=== PATIENT | female | born 1960 | race Caucasian/White ===

== ENCOUNTER 2019-04-29 08:25 | Emergency (ER) | payer BC ==
[~2019-04-29] VITALS: Ht 165.1 cm; Wt 65.9 kg
[2019-04-29 08:30] VITALS: TEMP 97.9
[2019-04-29] MEDS ORDERED: MAVIK2 MG PO (08:38)
[2019-04-29 08:48] LABS: BASO % 0.1 % (0.0-2.0); EOS # 0.1 (0.0-0.7); EOS % 0.9 % (0-4.0); GRAN # 5.6 (1.4-6.5); GRAN % 74.2 % (42.2-75.2); HEMATOCRIT 45.4 % (37.0-47.0); HEMOGLOBIN 15.3 g/dl (12.5-16.0); LYMPH # 1.3 (1.2-3.4); LYMPH % 17.9 % (20.0-51.0); MEAN CELL VOLUME 94 fl (80.0-100.0); MEAN CORPUSCULAR HEMOGLOBIN 32 pg (27.0-31.0); MEAN CORPUSCULAR HGB CONC 34 g/dl (33.0-37.0); MONO # 0.5 (0.1-0.6); MONO % 6.5 % (1.7-9.3); PLATELET COUNT 270 K/mm3 (130-400); RED BLOOD COUNT 4.83 M/mm3 (4.10-5.30); REDCELL DISTRIBUTION WIDTH-CV 12.9 % (11.5-14.5)
[2019-04-29 09:06] LABS: ALANINE AMINOTRANSFERASE 42 U/L (9-52); ALBUMIN 4.9 gm/dL (3.5-5.0); ALKALINE PHOSPHATASE 76 U/L (50-136); ANION GAP 10 mmol/L (7-16); AST,SGOT 31 U/L (15-37); BLOOD UREA NITROGEN 13 mg/dL (7-17); CALCIUM 9.9 mg/dL (8.4-10.2); CARBON DIOXIDE 22 mmol/L (22-30); CHLORIDE 108 mmol/L (98-107); CREATININE, serum 0.73 (0.52-1.25); GLUCOSE 110 mg/dL (74-106); POTASSIUM 3.9 mmol/L (3.4-5.0); SODIUM 141 mmol/L (137-145); TOTAL PROTEIN 8.9 gm/dL (6.4-8.2)
[2019-04-29 09:08] LABS: C-REACTIVE PROTEIN < 0.5 mg/dL (0.0-0.9)
[2019-04-29 09:22] LABS: COLLECTION METHOD CLEAN CATCH
[2019-04-29 09:30] LABS: PH 8 (5-8); SQUAMOUS EPITHELIAL None Seen /hpf; URINE APPEARANCE Clear; URINE BACTERIA None Seen /hpf; URINE BILIRUBIN Negative (NEGATIVE); URINE BLOOD Negative (NEGATIVE); URINE COLOR Yellow; URINE GLUCOSE Negative (NEGATIVE); URINE KETONE 1+ (NEGATIVE); URINE LEUKOCYTE ESTERASE Negative (NEGATIVE); URINE NITRATE Negative (NEGATIVE); URINE PROTEIN(semi-quant) Negative (NEGATIVE); URINE UROBILINOGEN Negative (NEGATIVE)
[2019-04-29 10:48] VITALS: BP 176/108; PULSE 72
[2019-04-29] MEDS ORDERED: ANTIVERT 12.512.5 MG PO (10:53)
[2019-04-30] MEDS ORDERED: NORVASC 5MG5 MG/TAB PO (07:47)
[2019-04-30] MEDS ORDERED: DESYREL 50MG50 MG PO (07:47)
== END 2019-04-29 10:44 | disposition home or self-care (01) ==
LOC: COL.ER 08:25
PROVIDERS: Physician Assistant
DX: R10.31 Right lower quadrant pain (principal); R42 Dizziness and giddiness; I10 Essential (primary) hypertension; Z90.710 Acquired absence of both cervix and uterus; Z98.51 Tubal ligation status
CPT/HCPCS: J1170; J2405; J7030; Q9967

== ENCOUNTER 2019-04-30 03:47 | Emergency (ER) | payer BC ==
[~2019-04-30] VITALS: Ht 165.1 cm; Wt 70.5 kg
[~2019-04-30 03:47] MED LIST: ANTIVERT 12.512.5 MG PO; MAVIK2 MG PO
[2019-04-30 04:02] VITALS: TEMP 97.4
[2019-04-30 04:48] LABS: BASO % 0.3 % (0.0-2.0); EOS # 0.1 (0.0-0.7); EOS % 0.9 % (0-4.0); GRAN # 4.1 (1.4-6.5); GRAN % 64.4 % (42.2-75.2); HEMATOCRIT 40.7 % (37.0-47.0); HEMOGLOBIN 13.7 g/dl (12.5-16.0); LYMPH # 1.7 (1.2-3.4); LYMPH % 26.5 % (20.0-51.0); MEAN CELL VOLUME 93 fl (80.0-100.0); MEAN CORPUSCULAR HEMOGLOBIN 31 pg (27.0-31.0); MEAN CORPUSCULAR HGB CONC 34 g/dl (33.0-37.0); MEAN PLATELET VOLUME 10.1 fl (7.4-10.4); MONO # 0.5 (0.1-0.6); MONO % 7.7 % (1.7-9.3); PLATELET COUNT 235 K/mm3 (130-400); RED BLOOD COUNT 4.39 M/mm3 (4.10-5.30); REDCELL DISTRIBUTION WIDTH-CV 12.7 % (11.5-14.5)
[2019-04-30 04:55] LABS: ALANINE AMINOTRANSFERASE 34 U/L (9-52); ALBUMIN 4.6 gm/dL (3.5-5.0); ALKALINE PHOSPHATASE 65 U/L (50-136); ANION GAP 9 mmol/L (7-16); AST,SGOT 26 U/L (15-37); BILIRUBIN,TOTAL 0.5 mg/dL (0.0-1.0); BLOOD UREA NITROGEN 11 mg/dL (7-17); CALCIUM 9.4 mg/dL (8.4-10.2); CARBON DIOXIDE 22 mmol/L (22-30); CHLORIDE 112 mmol/L (98-107); CREATININE, serum 0.65 (0.52-1.25); GLUCOSE 106 mg/dL (74-106); LIPASE 74 U/L (23-300); POTASSIUM 3.7 mmol/L (3.4-5.0); SODIUM 142 mmol/L (137-145); TOTAL PROTEIN 7.9 gm/dL (6.4-8.2)
[2019-04-30 05:08] LABS: TROPONIN-I < 0.012 ng/mL (0.000-0.035)
[2019-04-30] MEDS ORDERED: DESYREL 50MG50 MG PO (07:47)
[2019-04-30] MEDS ORDERED: NORVASC 5MG5 MG/TAB PO (07:47)
[2019-04-30 08:13] VITALS: BP 168/94; PULSE 64
== END 2019-04-30 08:13 | disposition home or self-care (01) ==
LOC: COL.ER 03:47
PROVIDERS: Emergency Medicine
DX: I10 Essential (primary) hypertension (principal); R51 Headache; R11.0 Nausea; R53.81 Other malaise; Z98.51 Tubal ligation status; Z90.710 Acquired absence of both cervix and uterus
CPT/HCPCS: J2405; J3010

== ENCOUNTER 2019-06-13 12:35 | Day surgery (SDC) | payer BC ==
[~2019-06-13] VITALS: Ht 165.1 cm; Wt 64.5 kg
[~2019-06-13 12:35] MED LIST changes: +DESYREL 50MG50 MG PO; +NORVASC 5MG5 MG/TAB PO
[2019-06-13] MEDS ORDERED: PRINIVIL40 MG PO (13:16)
[2019-06-13] MEDS ORDERED: HCTZ 25MG TAB25 MG PO (13:17)
[2019-06-13] MEDS ORDERED: AMBIEN CR 12.12.5 MG PO (13:18)
[2019-06-13] MEDS ORDERED: ATIVAN 0.50.5 MG/TAB PO (13:18)
[2019-06-13 13:20] VITALS: BP 128/90; PULSE 100; TEMP 98.6
[2019-06-13 15:05] VITALS: BP 109/74; PULSE 78; TEMP 98.9
[2019-06-13 15:15] VITALS: BP 123/81; PULSE 80
[2019-06-13 15:21] VITALS: TEMP 98.9
[2019-06-13 15:35] VITALS: BP 140/82; PULSE 88
== END 2019-06-13 16:00 | disposition home or self-care (01) ==
LOC: SDCO 12:35
DX: K63.5 Polyp of colon (principal); R19.7 Diarrhea, unspecified; K21.0 Gastro-esophageal reflux disease with esophagitis; K29.30 Chronic superficial gastritis without bleeding; F41.9 Anxiety disorder, unspecified; K59.00 Constipation, unspecified; I10 Essential (primary) hypertension; Z88.1 Allergy status to other antibiotic agents; Z90.710 Acquired absence of both cervix and uterus; Z86.010 Personal history of colon polyps
CPT/HCPCS: J2405; J2704; J7030